=== PATIENT | female | born 1965 | race African-American/Black ===

== ENCOUNTER 2016-11-10 09:27 | Day surgery (SDC) | payer BC ==
[~2016-11-10] VITALS: Ht 175.3 cm; Wt 82.7 kg
[2016-11-10] VITALS (7 sets, daily range): BP systolic 133–157; BP diastolic 63–87; PULSE 49–68; TEMP 97.5–98.2
[~2016-11-10 09:27] MED LIST: BACTRIM DS 8001 TAB PO; ESTRACE2 MG PO; PRINZIDE 25 MG-1 TAB PO; TOPROL XL 25MG25 MG PO; ULTRAM 50MG TAB50 MG PO
[2016-11-10] MEDS ORDERED: HYDRODIURIL50 MG PO (10:07)
[2016-11-10] MEDS ORDERED: CELEBREX 200MG200 MG PO (11:56)
[2016-11-11] VITALS: BP 137/62; PULSE 61; TEMP 97.6
[2016-11-11 04:00] VITALS: BP 116/62; PULSE 47; TEMP 98.5
[2016-11-11 09:08] VITALS: BP 125/59; PULSE 47; TEMP 97.7
[2016-11-11] MEDS ORDERED: NORCO 325 MG-51 TAB PO (09:48)
== END 2016-11-11 11:30 | disposition home or self-care (01) ==
LOC: SDCO 09:27 → SURG 17:19 → SDCO 11-11 11:30
DX: R22.1 Localized swelling, mass and lump, neck (principal); I10 Essential (primary) hypertension; M19.90 Unspecified osteoarthritis, unspecified site; Z90.710 Acquired absence of both cervix and uterus; G47.00 Insomnia, unspecified; Z80.3 Family history of malignant neoplasm of breast; Z80.9 Family history of malignant neoplasm, unspecified; E66.9 Obesity, unspecified; R05 Cough
CPT/HCPCS: OP; J0360; J1100; J1170; J2270; J2310; J2405; J2550; J2704; J3010; J7120

== ENCOUNTER → 2016-11-14 | Outpatient (CLI) | payer BC ==
[~2016-11-14] MED LIST changes: +CELEBREX 200MG200 MG PO; +HYDRODIURIL50 MG PO; +NORCO 325 MG-51 TAB PO
== END ==
LOC: COL.RAD 10:39
DX: I87.1 Compression of vein (principal); R22.1 Localized swelling, mass and lump, neck; I72.0 Aneurysm of carotid artery; Z98.890 Other specified postprocedural states
CPT/HCPCS: Q9967

== ENCOUNTER 2017-01-02 07:37 | Day surgery (SDC) | payer BC ==
[~2017-01-02] VITALS: Ht 144.8 cm; Wt 82.5 kg
[2017-01-02] MEDS ORDERED: PRINIVIL20 MG PO (08:18)
[2017-01-02 08:19] VITALS: BP 138/83; PULSE 65; TEMP 98
[2017-01-02 09:20] VITALS: BP 137/83; PULSE 74; TEMP 97
[2017-01-02 09:35] VITALS: BP 137/87; PULSE 69
[2017-01-02 09:50] VITALS: BP 138/85; PULSE 61
== END 2017-01-02 10:05 | disposition home or self-care (01) ==
LOC: SDCO 07:37
DX: Z12.11 Encounter for screening for malignant neoplasm of colon (principal); K64.0 First degree hemorrhoids; I10 Essential (primary) hypertension; Z90.710 Acquired absence of both cervix and uterus
CPT/HCPCS: OP; J2250; J3010; J7030

== ENCOUNTER 2017-09-18 12:42 | Day surgery (SDC) | payer BC ==
[~2017-09-18] VITALS: Ht 147.3 cm; Wt 84.0 kg
[~2017-09-18 12:42] MED LIST changes: +ESTRACE 1MG1 MG/TAB PO; -ESTRACE2 MG PO; +PRINIVIL20 MG PO
[2017-09-18] MEDS ORDERED: AMBIEN 10MG10 MG PO (12:57)
[2017-09-18] MEDS ORDERED: PROAIR HFA0.09 MG/AC IH (12:58)
[2017-09-18] MEDS ORDERED: ALBUTEROL0.83 MG/ML IH (12:59)
[2017-09-18 13:16] VITALS: BP 136/75; PULSE 51; TEMP 98.2
[2017-09-18 14:05] VITALS: BP 128/74; PULSE 70; TEMP 97.6
[2017-09-18 14:15] VITALS: BP 117/76; PULSE 53
[2017-09-18 14:30] VITALS: BP 132/80; PULSE 52
== END 2017-09-18 14:45 | disposition home or self-care (01) ==
LOC: SDCO 12:42
DX: K29.30 Chronic superficial gastritis without bleeding (principal); B96.81 Helicobacter pylori [H. pylori] as the cause of diseases classified elsewhere
CPT/HCPCS: OP; J2250; J3010; J7030

== ENCOUNTER → 2017-09-26 | Outpatient (CLI) | payer BC ==
[~2017-09-26] MED LIST changes: +ALBUTEROL0.83 MG/ML IH; +AMBIEN 10MG10 MG PO; +PROAIR HFA0.09 MG/AC IH
== END ==
LOC: COL.RAD 07:59
DX: K59.00 Constipation, unspecified (principal)
CPT/HCPCS: A9541

== ENCOUNTER → 2017-11-16 | Outpatient (CLI) | payer BC | LOC: MC.RAD 08:08 | DX: Z12.31 Encounter for screening mammogram for malignant neoplasm of breast (principal) ==

== ENCOUNTER 2018-01-23 16:30 | Emergency (ER) | payer BC ==
[~2018-01-23] VITALS: Ht 144.8 cm; Wt 82.3 kg
[2018-01-23 16:56] VITALS: BP 158/82; PULSE 53
[2018-01-23] MEDS ORDERED: CEPHALEXIN500 M1 PO (18:43)
[2018-01-23 19:13] VITALS: TEMP 97.7
[2018-01-23] MEDS ORDERED: ROXICODONE 55 MG/TAB PO (20:58)
[2018-01-23] MEDS ORDERED: MIRALAX PA17 GM/Dose PO (20:59)
[2018-01-23] MEDS ORDERED: SENOKOT S 50 MG1 TAB PO (21:00)
== END 2018-01-23 19:13 | disposition home or self-care (01) ==
LOC: COL.ER 16:30
DX: L08.9 Local infection of the skin and subcutaneous tissue, unspecified (principal)

== ENCOUNTER 2019-01-21 07:28 | Day surgery (SDC) | payer BC ==
[~2019-01-21] VITALS: Ht 144.8 cm; Wt 80.3 kg
[~2019-01-21 07:28] MED LIST changes: +CEPHALEXIN500 M1 PO; +MIRALAX PA17 GM/Dose PO; +ROXICODONE 55 MG/TAB PO; +SENOKOT S 50 MG1 TAB PO
[2019-01-21] MEDS ORDERED: AMITRIPTYLINE H25 M1 PO (07:46)
[2019-01-21] MEDS ORDERED: VITAMIN D 50,1.25 MG PO (07:47)
[2019-01-21 08:02] VITALS: BP 112/81; PULSE 61; TEMP 97.5
[2019-01-21 09:35] VITALS: BP 115/73; PULSE 76; TEMP 97.1
--- NOTE | 2019-01-21 09:35 | NUR ---
TO BAY 5 PER CART FROM ENDOSCOPY. ALERT ORIENTED X3, TALKING TO STAFF AND FAMILY. RECEIVED APPLE JUICE AND APPLESAUCE.
[2019-01-21 09:50] VITALS: BP 121/75; PULSE 72
--- NOTE | 2019-01-21 09:50 | NUR ---
RESTING QUIETLY DENIES PAIN OR DISCOMFORT DENIES NAUSEA
--- NOTE | 2019-01-21 10:00 | NUR ---
DR HALL TALKING WITH PATIENT AND .
--- NOTE | 2019-01-21 10:15 | NUR ---
RECEIVED DISCHARGE INSTRUCTIONS AND VERBALIZED UNDERSTANDING DISCONTINUED IV AND INT- CATHETER INTACT
--- NOTE | 2019-01-21 10:30 | NUR ---
DISCHARGED PER WC BY NURSING STAFF TO PRIVATE CAR IN CARE OF GEETHA
== END 2019-01-21 10:30 | disposition home or self-care (01) ==
LOC: SDCO 07:28
DX: K22.2 Esophageal obstruction (principal); K44.9 Diaphragmatic hernia without obstruction or gangrene; K29.30 Chronic superficial gastritis without bleeding; I10 Essential (primary) hypertension; M79.7 Fibromyalgia; M19.90 Unspecified osteoarthritis, unspecified site; E04.9 Nontoxic goiter, unspecified
CPT/HCPCS: C1726; J2250; J3010

== ENCOUNTER 2019-02-13 14:09 | Emergency (ER) | payer BC ==
[~2019-02-13] VITALS: Ht 144.8 cm; Wt 80.9 kg
[~2019-02-13 14:09] MED LIST changes: +AMITRIPTYLINE H25 M1 PO; +VITAMIN D 50,1.25 MG PO
[2019-02-13 14:28] VITALS: TEMP 97.9
[2019-02-13 14:48] LABS: BASO % 0.6 % (0.0-2.0); EOS # 0.1 (0.0-0.7); EOS % 1.4 % (0-4.0); GRAN # 3.9 (1.4-6.5); GRAN % 54.9 % (42.2-75.2); HEMOGLOBIN 11.3 g/dl (12.5-16.0); LYMPH # 2.5 (1.2-3.4); LYMPH % 35.3 % (20.0-51.0); MEAN CELL VOLUME 87 fl (80.0-100.0); MEAN CORPUSCULAR HEMOGLOBIN 28 pg (27.0-31.0); MEAN CORPUSCULAR HGB CONC 33 g/dl (33.0-37.0); MEAN PLATELET VOLUME 9.7 fl (7.4-10.4); MONO # 0.5 (0.1-0.6); MONO % 7.2 % (1.7-9.3); PLATELET COUNT 366 K/mm3 (130-400); RED BLOOD COUNT 3.99 M/mm3 (4.10-5.30); REDCELL DISTRIBUTION WIDTH-CV 16.1 % (11.5-14.5)
[2019-02-13 14:49] LABS: HEMATOCRIT 34.7 % (37.0-47.0)
[2019-02-13 14:55] LABS: INR 1.2 (0.8-3.0); PROTHROMBIN TIME 13.7 SECONDS (9.7-12.8)
[2019-02-13 14:58] LABS: ALANINE AMINOTRANSFERASE < 6 U/L (9-52); ALBUMIN 4.3 gm/dL (3.5-5.0); ALKALINE PHOSPHATASE 94 U/L (50-136); ANION GAP 9 mmol/L (7-16); AST,SGOT 31 U/L (15-37); BILIRUBIN,TOTAL 0.3 mg/dL (0.0-1.0); BLOOD UREA NITROGEN 8 mg/dL (7-17); CALCIUM 9.3 mg/dL (8.4-10.2); CARBON DIOXIDE 28 mmol/L (22-30); CHLORIDE 103 mmol/L (98-107); CREATINE KINASE 95 U/L (30-135); CREATININE, serum 0.73 (0.52-1.25); GLUCOSE 95 mg/dL (74-106); LIPASE 77 U/L (23-300); SODIUM 141 mmol/L (137-145); TOTAL PROTEIN 9.1 gm/dL (6.4-8.2)
[2019-02-13 15:01] LABS: POTASSIUM 2.9 mmol/L (3.4-5.0)
[2019-02-13 15:11] LABS: TROPONIN-I < 0.012 ng/mL (0.000-0.035)
[2019-02-13 17:57] VITALS: BP 168/91; PULSE 62
== END 2019-02-13 18:05 | disposition home or self-care (01) ==
LOC: COL.ER 14:09
PROVIDERS: Emergency Medicine
DX: I10 Essential (primary) hypertension (principal); M79.7 Fibromyalgia; Z90.710 Acquired absence of both cervix and uterus; Z98.890 Other specified postprocedural states
CPT/HCPCS: J0360; Q9967